=== PATIENT | male | born 1995 | race Caucasian/White ===

== ENCOUNTER 2018-09-27 13:20 | Day surgery (SDC) | payer OTHER ==
[2018-09-26 13:17] VITALS: Ht 182.9 cm; Wt 102.3 kg
[2018-09-27] VITALS (9 sets, daily range): BP systolic 118–135; BP diastolic 65–89; PULSE 18–76; RESP 11–18
[~2018-09-27] VITALS: Ht 182.9 cm; Wt 102.3 kg
[~2018-09-27 13:20] MED LIST: CEFAZOLIN 2 GM/50 ML (PMX) 50 ML IVPB ONE; SOD CHLORIDE 0.9% 1,000 ML IV SCH
--- NOTE | 2018-09-27 15:51 | PREAC ---
Date/Time of Note Date/Time of Note DATE: 09/27/18 TIME: 15:50 Anesthesia Eval and Record Evaluation Time Pre-Procedure Interview DATE: 09/27/18 TIME: 15:50 Age 23 Sex male NPO: 8 hrs Preoperative diagnosis right axilla lesion Planned procedure excision of right axilla lesion Past Medical History Past Medical History: None Surgery & Anesthesia Issues No known issue Meds Anticoagulation: No Beta Kong within 24 hr: No Reason Beta Kong not given: Pt. not on B-Kong Current Medications Sodium Chloride 1,000 ml @ 75 mls/hr [id number] IV ; Start 09/27/18 at 08:00; Stop 09/27/18 at 21:19 Meds reviewed: Yes Allergies Coded Allergies: No Known Allergy (Unverified , 09/26/18) Allergies Reviewed: Yes Labs/Studies Labs Reviewed: Reviewed by anesthesiologist test: N/A Pre-procedure Exam Last vitals Vital Signs Date Temp Pulse Resp B/P (MAP) Pulse Ox O2 O2 Flow FiO2 Time Delivery Rate 09/27/18 97.9 18 18 122/69 98 Room Air 14:08 (86) Airway: Adequate mouth opening Mallampati: Mallampati I Teeth: Normal Lung: Normal Heart: Normal ASA Physical Status ASA physical status: 1 Emergency: None Planned Anesthetic General/MAC: ETT Pre-operative Attestations Prior to commencing anesthesia and surgery, the patient was re-evaluated, there was verification of: *The patient's identity *The results of appropriate recent lab work and preoperative vital signs *The above evaluation not changing prior to induction *Anesthetic plan, risk benefits, alternative and complications discussed with patient/family; questions answered; patient/family understands, accepts and wishes to proceed. VANI DHALIWAL Sep 27, 2018 15:51
[2018-09-27] MEDS ORDERED: DIPHENHYDRAMINE 50 MG INJ IV PRN (16:00)
[2018-09-27] MEDS ORDERED: OXYCODONE/ACETAMINOPHEN (5/325) TAB PO PRN ×2 (16:00)
[2018-09-27] MEDS ORDERED: HYDROmorphONE 1 MG/5 ML IV SYRINGE IV PRN ×3 (16:00)
[2018-09-27] MEDS ORDERED: ONDANSETRON 4 MG INJ IV PRN (16:00)
[2018-09-27] MEDS ORDERED: MEPERIDINE 25 MG INJ IV PRN (16:00)
[2018-09-27] MEDS ORDERED: BUPIVACAINE 0.5%/EPI (SDV) 30 ML INJ ONE (16:27)
[2018-09-27] MEDS ORDERED: LIDOCAINE 1% (MPF) 30 ML INJ ONE (16:27)
--- NOTE | 2018-09-27 16:28 | HPN ---
Date/Time of Note Date/Time of Note DATE: 09/27/18 TIME: 16:28 Interval H&P Admission Note Pt. seen H&P reviewed: No system changes BRANT WHITE Sep 27, 2018 16:28
[2018-09-27] MEDS ORDERED: MIDAZOLAM 1 MG/ML 2 ML INJ ONE (16:41)
[2018-09-27] MEDS ORDERED: FENTAnyl 50 MCG/ML VIAL ONE (16:41)
[2018-09-27] MEDS ORDERED: PROPOFOL 20 ML ONE (16:41)
[2018-09-27] MEDS ORDERED: CEFAZOLIN 1 GM INJ ONE (16:41)
[2018-09-27] MEDS ORDERED: KETOROLAC 30 MG INJ ONE (17:09)
--- NOTE | 2018-09-27 17:35 | SIPON ---
Date/Time of Note Date/Time of Note DATE: 09/27/18 TIME: 17:33 Operative Report Preoperative Diagnosis right axilla cyst Postoperative Diagnosis right axilla cyst Operation/Procedure Performed excision of right axilla cyst 10 cm Surgeon see signature line assistant manager retail None Anesthesia: general Estimated blood loss: minimal Transfusion Required none Specimen right axilla cyst Grafts/Implants none Complications none BRANT WHITE Sep 27, 2018 17:35
--- NOTE | 2018-09-27 23:26 | OPR ---
DATE OF OPERATION: 09/27/2018 PREOPERATIVE DIAGNOSIS: Right axillary cyst. POSTOPERATIVE DIAGNOSIS: Right axillary cyst. OPERATION PERFORMED: Excision of right axillary cyst, a 10 cm wide incision. SURGEON: Brant Jackman MD LACQUER DIPPING MACHINE OPERATOR: None. SPECIMEN: Axilla cyst, sent to pathology. ESTIMATED BLOOD LOSS: 5 mL. COMPLICATIONS: None. ANESTHESIA: Light sedation. ANESTHESIOLOGIST: Dr. Beltran. COMPLICATIONS: None. OPERATIVE INDICATION: This gentleman has a cyst along the inferior aspect of his right axilla that h as been getting recurrent infection causing significant irritation. He presented to the clinic reque sting removal for relief of symptoms and infection. DESCRIPTION OF PROCEDURE: The patient was placed supine on the operating room table with the right a rm extended out and his axilla exposed and prepped and draped in a sterile manner. Timeout was condu cted. An elliptical incision was made at the area encompassing the cyst, and the patient's right axi llary cyst was excised along with the accompanying skin that the cyst was encroaching upon. This inc ision was made with electrocautery on the cut setting and deepened through the patient's subcutaneous tissue and was noted to extend all the way down to the level of the fascia. Once the cyst was fully excised, it was sent off to pathology along with the accompanying skin. Afterwards 3-0 nylon suture s were used to reapproximate the skin using interrupted sutures. Wet and dry dressings were applied, and the wound was then covered with Dermabond solution. The patient tolerated the procedure well. All instrument, sponge, and needle counts were correct at the end of the procedure. There were no co mplications. Dictated By: BRANT MALDONADO/CARLOS Conf#: [id number] DID#: [id number]
--- NOTE | 2018-09-28 11:34 | PAC ---
Date/Time of Note Date/Time of Note DATE: 09/28/18 TIME: 11:33 Post-Anesthesia Notes Post-Anesthesia Note Last documented vital signs Vital Signs Date Temp Pulse Resp B/P (MAP) Pulse Ox O2 O2 Flow FiO2 Time Delivery Rate 09/27/18 97.9 76 17 127/75 100 Room Air 18:10 (92) 09/27/18 97.9 17:35 Activity: WNL Respiratory function: WNL Cardiovascular function: WNL Mental status: Baseline Pain reasonably controlled: Yes Hydration appropriate: Yes Nausea/Vomiting absent: No MOISES WEEKS MD Sep 28, 2018 11:34
== END 2018-09-27 18:39 | disposition home or self-care (01) ==
LOC: SDS 13:20
PROVIDERS: ATTEND Surgery Surgical Critical Care
DX: L90.5 Scar conditions and fibrosis of skin (principal)
CPT/HCPCS: 11406; 88305; J0690; J2250; J3010; Z7512; Z7610; J1885